=== PATIENT | female | born 1985 | race Caucasian/White ===

== ENCOUNTER 2019-01-06 21:35 | Inpatient (IN) | payer OTHER ==
[~2019-01-06] VITALS: Ht 172.7 cm; Wt 111.0 kg
--- NOTE | 2019-01-06 21:55 | NUR ---
BIB [facility] FROM [facility] WITH C/O BRAIN TUMOR, PT HAS LEFT JAW PAIN ON FRIDAY AND WENT TO ER TODAY NOW TRANSFERED HERE FOR HIGHER LEVEL OF CARE
[2019-01-06] MEDS ORDERED: ONDANSETRON 2MG/ML, 2ML ONE (22:27)
[2019-01-06] MEDS ORDERED: MORPHINE SULFATE 4 MG/ML, 1ML ONE (22:28)
[2019-01-06] MEDS ORDERED: MORPHINE SULFATE 4 MG/ML, 1ML IVPush PRN ×2 (22:30→23:00)
[2019-01-06] MEDS ORDERED: ONDANSETRON 2MG/ML, 2ML IVPush ONE (22:30)
--- NOTE | 2019-01-06 22:41 | NUR ---
medicated per md order pt ambulated to br , in nad at this time
[2019-01-06 22:56] LABS: BASOPHILS # (AUTO) 0.01 x10^3/uL (0-0.1); BASOPHILS % (AUTO) 0 % (0-1); EOSINOPHILS # (AUTO) 0.01 x10^3/uL (0-0.4); EOSINOPHILS % (AUTO) 0 % (1-7); LYMPHOCYTES # (AUTO) 0.72 x10^3/uL (1-3.4); LYMPHOCYTES % (AUTO) 9 % (22-44); MD NO; MEAN CORPUSCULAR HEMOGLOBIN 28.6 pg (27.0-34.8); MEAN CORPUSCULAR HGB CONC 33.4 g/dL (32.4-35.8); MEAN CORPUSCULAR VOLUME 85.8 fL (80-100); MEAN PLATELET VOLUME 9.3 fL (7.4-10.4); MONOCYTES # (AUTO) 0.08 x10^3/uL (0.2-0.8); MONOCYTES % (AUTO) 1 % (2-9); NEUTROPHILS # (AUTO) 7.07 x10^3/uL (1.8-6.8); NEUTROPHILS % (AUTO) 90 % (42-75); PLATELET COUNT 192 x10^3/uL (130-400); RED BLOOD COUNT 4.86 x10^6/uL (3.82-5.3); RED CELL DISTRIBUTION WIDTH 13.5 % (9.6-15.2)
[2019-01-06] MEDS ORDERED: ONDANSETRON 2MG/ML, 2ML IVPush PRN (23:00)
--- NOTE | 2019-01-06 23:01 | NUR ---
REPORT TO ANAIS PT TO ROOM WITH TECH
[2019-01-06 23:06] LABS: ANION GAP 8 mmol/L (5-15); CALCIUM 8.7 mg/dL (8.5-10.1); CHLORIDE 107 mmol/L (98-107); CREATININE 0.89 mg/dL (0.55-1.02)
[2019-01-06 23:07] LABS: ALANINE AMINOTRANSFERASE 25 U/L (12-78); ALBUMIN 4.1 g/dL (3.4-5.0)
[2019-01-06 23:11] LABS: ALKALINE PHOSPHATASE 80 U/L (45-117); BILIRUBIN,TOTAL 0.6 mg/dL (0.2-1.0); TOTAL PROTEIN 7.4 g/dL (6.4-8.2)
[2019-01-06] MEDS ORDERED: TEMAZEPAM 15 MG CAPSULE PO PRN (23:30)
[2019-01-06] MEDS ORDERED: CYCLOBENZAPRINE 10 MG TABLET PO PRN (23:30)
[2019-01-06] MEDS ORDERED: ENALAPRILAT 1.25 MG/ML, 2ML IVPush PRN (23:30)
[2019-01-06 23:42] VITALS: BP 127/68
[2019-01-07] MEDS: DEXAMETHASONE 4 MG/ML, 1ML IVPush SCH ×4 (00:30→19:45)
[2019-01-07] MEDS ORDERED: DEXAMETHASONE 4 MG/ML, 5ML ONE ×2 (00:42→05:49)
[2019-01-07 01:01] VITALS: BP 111/66
[2019-01-07 05:16] LABS: BASOPHILS # (AUTO) 0.01 x10^3/uL (0-0.1); BASOPHILS % (AUTO) 0 % (0-1); EOSINOPHILS % (AUTO) 0 % (1-7); LYMPHOCYTES # (AUTO) 0.56 x10^3/uL (1-3.4); LYMPHOCYTES % (AUTO) 11 % (22-44); MD NO; MEAN CORPUSCULAR HEMOGLOBIN 29.3 pg (27.0-34.8); MEAN CORPUSCULAR HGB CONC 33.7 g/dL (32.4-35.8); MEAN PLATELET VOLUME 9.6 fL (7.4-10.4); MONOCYTES # (AUTO) 0.04 x10^3/uL (0.2-0.8); MONOCYTES % (AUTO) 1 % (2-9); NEUTROPHILS # (AUTO) 4.65 x10^3/uL (1.8-6.8); NEUTROPHILS % (AUTO) 89 % (42-75); PLATELET COUNT 192 x10^3/uL (130-400); RED BLOOD COUNT 4.97 x10^6/uL (3.82-5.3); RED CELL DISTRIBUTION WIDTH 13.6 % (9.6-15.2)
[2019-01-07 05:22] LABS: ANION GAP 6 mmol/L (5-15); CALCIUM 8.6 mg/dL (8.5-10.1); CHLORIDE 108 mmol/L (98-107)
[2019-01-07 05:23] LABS: CREATININE 0.88 mg/dL (0.55-1.02)
[2019-01-07] MEDS: morphine SULFATE 10 MG/ML, 1ML IVPush PRN ×7 (05:25→22:43)
[2019-01-07] MEDS ORDERED: CARB200T4 PO (06:07)
[2019-01-07] MEDS ORDERED: CYCL-259 PO (06:10)
[2019-01-07] MEDS: LIDODERM 5% PATCH TD PRN (07:53)
[2019-01-07] MEDS: ACETAMINOPHEN 325 MG TABLET PO PRN (07:53)
[2019-01-07 08:30] VITALS: BP 116/72
[2019-01-07] MEDS: SODIUM CHLORIDE 0.9% 1,000 ML IV SCH (08:41)
[2019-01-07] MEDS: FAMOTIDINE 20 MG/2 ML IVPush SCH ×2 (09:51→21:08)
[2019-01-07] MEDS: GABAPENTIN 100 MG CAPSULE PO SCH ×3 (11:03→21:08)
[2019-01-07 12:27] VITALS: BP 113/69
[2019-01-07] MEDS ORDERED: GADOBUTROL 15 MMOL/15 ML VIAL ONE (16:10)
[2019-01-07 18:48] VITALS: BP 133/71
[2019-01-08 00:43] VITALS: BP 115/64
[2019-01-08] MEDS: DEXAMETHASONE 4 MG/ML, 1ML IVPush SCH ×4 (01:39→20:49)
[2019-01-08] MEDS: morphine SULFATE 10 MG/ML, 1ML IVPush PRN ×7 (01:43→22:09)
[2019-01-08] MEDS: SODIUM CHLORIDE 0.9% 1,000 ML IV SCH (04:16)
[2019-01-08 05:12] LABS: ANION GAP 5 mmol/L (5-15); CALCIUM 8.2 mg/dL (8.5-10.1); CHLORIDE 109 mmol/L (98-107); CREATININE 0.86 mg/dL (0.55-1.02)
[2019-01-08] MEDS: GABAPENTIN 100 MG CAPSULE PO SCH ×4 (05:19→20:50)
[2019-01-08 05:39] LABS: BASOPHILS # (AUTO) 0.02 x10^3/uL (0-0.1); BASOPHILS % (AUTO) 0 % (0-1); EOSINOPHILS % (AUTO) 0 % (1-7); LYMPHOCYTES # (AUTO) 0.65 x10^3/uL (1-3.4); LYMPHOCYTES % (AUTO) 9 % (22-44); MD NO; MEAN CORPUSCULAR HEMOGLOBIN 29.3 pg (27.0-34.8); MEAN CORPUSCULAR HGB CONC 33.7 g/dL (32.4-35.8); MEAN CORPUSCULAR VOLUME 86.8 fL (80-100); MONOCYTES # (AUTO) 0.13 x10^3/uL (0.2-0.8); MONOCYTES % (AUTO) 2 % (2-9); NEUTROPHILS # (AUTO) 6.79 x10^3/uL (1.8-6.8); NEUTROPHILS % (AUTO) 90 % (42-75); PLATELET COUNT 189 x10^3/uL (130-400); RED BLOOD COUNT 4.81 x10^6/uL (3.82-5.3); RED CELL DISTRIBUTION WIDTH 13.6 % (9.6-15.2)
[2019-01-08 07:22] VITALS: BP 126/74
[2019-01-08] MEDS: FAMOTIDINE 20 MG/2 ML IVPush SCH ×2 (08:10→20:49)
[2019-01-08] MEDS: LIDODERM 5% PATCH TD PRN (09:46)
[2019-01-08 11:31] LABS: INTERNATIONAL NORMALIZED RATIO 1.04 (0.93-1.1); PROTHROMBIN TIME 10.9 Seconds (9.6-11.5)
[2019-01-08 12:17] VITALS: BP 139/82
[2019-01-08 18:48] VITALS: BP 127/78
[2019-01-08] MEDS ORDERED: CARBAMAZEPINE 200 MG TABLET PO SCH (21:00)
[2019-01-09] MEDS: SODIUM CHLORIDE 0.9% 1,000 ML IV SCH (00:32)
[2019-01-09 01:13] VITALS: BP 115/71
[2019-01-09] MEDS: morphine SULFATE 10 MG/ML, 1ML IVPush PRN ×7 (01:20→21:38)
[2019-01-09] MEDS: DEXAMETHASONE 4 MG/ML, 1ML IVPush SCH ×4 (02:20→20:12)
[2019-01-09] MEDS: GABAPENTIN 100 MG CAPSULE PO SCH ×4 (05:13→21:37)
[2019-01-09] MEDS: LIDODERM 5% PATCH TD PRN (08:09)
[2019-01-09 08:16] VITALS: BP 117/75
[2019-01-09] MEDS: FAMOTIDINE 20 MG/2 ML IVPush SCH ×2 (09:33→21:38)
[2019-01-09] MEDS: CARBAMAZEPINE 200 MG TABLET PO SCH ×3 (09:33→21:37)
[2019-01-09] MEDS: BISACODYL 10 MG SUPP PR PRN (09:38)
[2019-01-09 12:04] VITALS: BP 126/80
[2019-01-09] MEDS: CYCLOBENZAPRINE 10 MG TABLET PO SCH ×2 (15:40→23:36)
[2019-01-09 19:13] VITALS: BP 126/76
[2019-01-10 01:01] VITALS: BP 127/76
[2019-01-10] MEDS: DEXAMETHASONE 4 MG/ML, 1ML IVPush SCH ×4 (01:33→20:55)
[2019-01-10] MEDS: morphine SULFATE 10 MG/ML, 1ML IVPush PRN ×7 (01:33→21:49)
[2019-01-10] MEDS: CARBAMAZEPINE 200 MG TABLET PO SCH ×4 (02:46→20:56)
[2019-01-10] MEDS: GABAPENTIN 100 MG CAPSULE PO SCH ×4 (05:45→20:56)
[2019-01-10 07:34] VITALS: BP 143/84
[2019-01-10] MEDS: FAMOTIDINE 20 MG/2 ML IVPush SCH (08:25)
[2019-01-10] MEDS: CYCLOBENZAPRINE 10 MG TABLET PO SCH ×3 (08:27→23:09)
[2019-01-10] MEDS: ONDANSETRON 2MG/ML, 2ML IVPush PRN (11:59)
[2019-01-10 13:57] VITALS: BP 132/80
[2019-01-10] MEDS: BISACODYL 10 MG SUPP PR PRN (18:41)
[2019-01-10 19:31] VITALS: BP 125/77
[2019-01-10] MEDS: FAMOTIDINE 20 MG TABLET PO SCH (20:56)
[2019-01-10] MEDS ORDERED: MORPHINE SULFATE 4 MG/ML, 1ML ONE (21:42)
[2019-01-11 01:29] VITALS: BP 127/77
[2019-01-11] MEDS: CARBAMAZEPINE 200 MG TABLET PO SCH ×4 (03:05→21:08)
[2019-01-11] MEDS: DEXAMETHASONE 4 MG/ML, 1ML IVPush SCH ×4 (03:05→21:08)
[2019-01-11] MEDS ORDERED: MORPHINE SULFATE 4 MG/ML, 1ML ONE ×2 (03:09→05:40)
[2019-01-11] MEDS: morphine SULFATE 10 MG/ML, 1ML IVPush PRN ×5 (03:11→19:33)
[2019-01-11 04:40] LABS: MICROSCOPIC NOT IND
[2019-01-11] MEDS: GABAPENTIN 100 MG CAPSULE PO SCH (05:38)
[2019-01-11 07:30] VITALS: BP 131/77
[2019-01-11] MEDS: FAMOTIDINE 20 MG TABLET PO SCH ×2 (08:01→21:08)
[2019-01-11] MEDS: CYCLOBENZAPRINE 10 MG TABLET PO SCH ×2 (08:01→16:22)
[2019-01-11] MEDS: ONDANSETRON 2MG/ML, 2ML IVPush PRN (08:05)
[2019-01-11] MEDS: GABAPENTIN 300 MG CAPSULE PO SCH ×3 (10:25→21:08)
[2019-01-11 12:35] VITALS: BP 123/79
[2019-01-11 18:53] VITALS: BP 128/85
[2019-01-12] MEDS: CYCLOBENZAPRINE 10 MG TABLET PO SCH ×3 (00:31→21:48)
[2019-01-12] MEDS: POTASSIUM CHLORIDE 20 MEQ in SODIUM CHLORIDE 0.9% 1,000 ML IV SCH ×2 (00:31→10:06)
[2019-01-12] MEDS ORDERED: MORPHINE SULFATE 4 MG/ML, 1ML ONE (01:52)
[2019-01-12] MEDS: morphine SULFATE 10 MG/ML, 1ML IVPush PRN ×2 (02:08→20:43)
[2019-01-12] MEDS: DEXAMETHASONE 4 MG/ML, 1ML IVPush SCH ×4 (02:09→21:48)
[2019-01-12 02:37] VITALS: BP 115/74
[2019-01-12] MEDS: CARBAMAZEPINE 200 MG TABLET PO SCH ×4 (03:00→21:49)
[2019-01-12 04:33] LABS: BASOPHILS # (AUTO) 0.03 x10^3/uL (0-0.1); BASOPHILS % (AUTO) 0 % (0-1); EOSINOPHILS % (AUTO) 0 % (1-7); LYMPHOCYTES # (AUTO) 1.11 x10^3/uL (1-3.4); LYMPHOCYTES % (AUTO) 13 % (22-44); MD NO; MEAN CORPUSCULAR HEMOGLOBIN 29.2 pg (27.0-34.8); MEAN CORPUSCULAR VOLUME 85.9 fL (80-100); MEAN PLATELET VOLUME 9.6 fL (7.4-10.4); MONOCYTES # (AUTO) 0.29 x10^3/uL (0.2-0.8); MONOCYTES % (AUTO) 3 % (2-9); NEUTROPHILS # (AUTO) 7.43 x10^3/uL (1.8-6.8); NEUTROPHILS % (AUTO) 84 % (42-75); PLATELET COUNT 203 x10^3/uL (130-400); RED BLOOD COUNT 5.13 x10^6/uL (3.82-5.3); RED CELL DISTRIBUTION WIDTH 13.6 % (9.6-15.2)
[2019-01-12 04:41] LABS: INTERNATIONAL NORMALIZED RATIO 0.98 (0.93-1.1); PROTHROMBIN TIME 10.3 Seconds (9.6-11.5)
[2019-01-12 04:50] LABS: CHLORIDE 105 mmol/L (98-107)
[2019-01-12 04:57] LABS: ALANINE AMINOTRANSFERASE 43 U/L (12-78); ALBUMIN 3.6 g/dL (3.4-5.0); ALKALINE PHOSPHATASE 74 U/L (45-117); ANION GAP 5 mmol/L (5-15); BILIRUBIN,TOTAL 0.4 mg/dL (0.2-1.0); CALCIUM 8.4 mg/dL (8.5-10.1); CREATININE 0.84 mg/dL (0.55-1.02)
[2019-01-12] MEDS: GABAPENTIN 300 MG CAPSULE PO SCH ×4 (06:00→21:49)
[2019-01-12] MEDS ORDERED: BACITRACIN 50,000 UNIT ONE (06:23)
[2019-01-12] MEDS ORDERED: BUPIVACAINE/PF-EPI 0.5% 1:200K ONE (06:23)
[2019-01-12] MEDS ORDERED: METHYLENE BLUE 10 MG/ML 10ML ONE (06:23)
[2019-01-12] MEDS ORDERED: CEFUROXIME 1.5 GM ONE ×3 (06:23→14:58)
[2019-01-12] MEDS ORDERED: THROMBIN 5,000 UNIT VIAL TP ONE (06:23)
[2019-01-12] MEDS ORDERED: THROMBIN 20,000 UNIT VIAL TP ONE (06:35)
[2019-01-12] MEDS ORDERED: SUFentanil 50 MCG/ML, 2ML ONE ×2 (06:41→10:42)
[2019-01-12] MEDS ORDERED: FENTANYL PF 250 MCG/5ML ONE (06:51)
[2019-01-12] MEDS ORDERED: MIDAZOLAM 1 MG/ML, 2ML ONE ×2 (06:51→15:14)
[2019-01-12] MEDS ORDERED: DEXAMETHASONE 4 MG/ML, 5ML ONE (07:02)
[2019-01-12] MEDS ORDERED: hydrALAzine 20 MG/ML, 1ML ONE (07:02)
[2019-01-12] MEDS ORDERED: SUCCINYLCHOLINE 20 MG/ML, 10ML ONE (07:02)
[2019-01-12] MEDS ORDERED: FAMOTIDINE 20 MG/2 ML ONE (07:07)
[2019-01-12] MEDS ORDERED: MANNITOL PMX 20% 500 ML ONE (07:07)
[2019-01-12] MEDS ORDERED: FUROSEMIDE 20 MG/2 ML ONE (08:05)
[2019-01-12] MEDS ORDERED: PROPOFOL 200 ML ONE (09:20)
[2019-01-12] MEDS ORDERED: LABETALOL 5MG/ML, 20ML IV PRN ×2 (09:30→21:00)
[2019-01-12] MEDS ORDERED: PROMETHAZINE 25 MG/ML, 1ML IV PRN (09:30)
[2019-01-12] MEDS ORDERED: ALBUTEROL SULFATE 2.5 MG/3 ML NPPB PRN (09:30)
[2019-01-12] MEDS ORDERED: ACETAMINOPHEN 325 MG TABLET PO PRN (09:30)
[2019-01-12] MEDS ORDERED: hydrALAzine 20 MG/ML, 1ML IV PRN ×2 (09:30→21:00)
[2019-01-12] MEDS ORDERED: DIAZEPAM 5 MG/ML, 2ML IVPush PRN (09:30)
[2019-01-12] MEDS ORDERED: OXYcodone 5 MG/5 ML ORAL.SOL UDC PO PRN (09:30)
[2019-01-12] MEDS ORDERED: MEPERIDINE/PF 25MG/0.5ML IVPush PRN (09:30)
[2019-01-12] MEDS ORDERED: PROPOFOL 100 ML ONE (12:44)
[2019-01-12] MEDS ORDERED: SUFentanil 50 MCG/ML, 1ML ONE ×2 (14:25→14:26)
[2019-01-12] MEDS ORDERED: POTASSIUM CHLORIDE 40 MEQ in SODIUM CHLORIDE 0.9% 500 ML IV ONE (15:13)
[2019-01-12] MEDS ORDERED: FENTANYL PF 100 MCG/2ML ONE ×2 (18:22→19:00)
[2019-01-12] MEDS ORDERED: CEFUROXIME 1.5 GM in SODIUM CHLORIDE 0.9% 50 ML IV ONE (18:37)
[2019-01-12] MEDS ORDERED: HYDROmorphone 1 MG/ML, 1ML ONE (19:00)
[2019-01-12] MEDS: HYDROmorphone 2 MG/ML, 1ML IVPush PRN ×2 (19:01→19:39)
[2019-01-12] MEDS: FENTANYL PF 100 MCG/2ML IV PRN ×2 (19:12→20:00)
[2019-01-12] MEDS ORDERED: morphine SULFATE 10 MG/ML, 1ML IV PRN (21:00)
[2019-01-12] MEDS: CEFUROXIME 1.5 GM in SODIUM CHLORIDE 0.9% 50 ML IVPB SCH (21:00)
[2019-01-12] MEDS ORDERED: HYDROmorphone PCA 30 MG/30 ML IV PRN (21:00)
[2019-01-12] MEDS: FAMOTIDINE 20 MG TABLET PO SCH ×2 (21:00→21:48)
[2019-01-12] MEDS: OXYcodone/APAP 5/325MG TABLET PO PRN (21:50)
[2019-01-12] MEDS: ONDANSETRON 2MG/ML, 2ML IV PRN (22:17)
[2019-01-13] MEDS: POTASSIUM CHLORIDE 20 MEQ in SODIUM CHLORIDE 0.9% 1,000 ML IV SCH ×2 (00:17→08:00)
[2019-01-13] MEDS ORDERED: LABETALOL 5 MG/ML SYRINGE IV PRN (00:30)
[2019-01-13] MEDS: CARBAMAZEPINE MC SCH ×2 (00:56→08:00)
[2019-01-13] MEDS: DEXAMETHASONE 4 MG/ML, 1ML IVPush SCH ×4 (02:17→19:44)
[2019-01-13] MEDS: CEFUROXIME 1.5 GM in SODIUM CHLORIDE 0.9% 50 ML IVPB SCH ×3 (02:17→17:18)
[2019-01-13] MEDS: CARBAMAZEPINE 200 MG TABLET PO SCH ×4 (02:21→21:36)
[2019-01-13] MEDS: OXYcodone/APAP 5/325MG TABLET PO PRN ×2 (04:17→19:45)
[2019-01-13 05:02] LABS: BASOPHILS # (AUTO) 0.02 x10^3/uL (0-0.1); BASOPHILS % (AUTO) 0 % (0-1); EOSINOPHILS % (AUTO) 0 % (1-7); LYMPHOCYTES # (AUTO) 0.54 x10^3/uL (1-3.4); LYMPHOCYTES % (AUTO) 5 % (22-44); MD NO; MEAN CORPUSCULAR HEMOGLOBIN 29.2 pg (27.0-34.8); MEAN CORPUSCULAR HGB CONC 33.9 g/dL (32.4-35.8); MEAN CORPUSCULAR VOLUME 86.1 fL (80-100); MEAN PLATELET VOLUME 9.6 fL (7.4-10.4); MONOCYTES # (AUTO) 0.47 x10^3/uL (0.2-0.8); MONOCYTES % (AUTO) 4 % (2-9); NEUTROPHILS % (AUTO) 91 % (42-75); PLATELET COUNT 190 x10^3/uL (130-400); RED BLOOD COUNT 4.42 x10^6/uL (3.82-5.3); RED CELL DISTRIBUTION WIDTH 14.2 % (9.6-15.2)
[2019-01-13 05:08] LABS: ANION GAP 7 mmol/L (5-15); CALCIUM 7.5 mg/dL (8.5-10.1); CHLORIDE 102 mmol/L (98-107)
[2019-01-13 05:11] LABS: CREATININE 0.74 mg/dL (0.55-1.02)
[2019-01-13] MEDS: CYCLOBENZAPRINE 10 MG TABLET PO SCH ×3 (06:51→21:34)
[2019-01-13] MEDS: ARTIFICIAL TEARS 15 DROP/ML BOTTLE EACHEYE SCH ×8 (08:00→21:36)
[2019-01-13] MEDS: FAMOTIDINE 20 MG TABLET PO SCH ×2 (09:33→21:33)
[2019-01-13] MEDS: GABAPENTIN 300 MG CAPSULE PO SCH ×4 (09:33→21:33)
[2019-01-13] MEDS: ONDANSETRON 2MG/ML, 2ML IV PRN ×2 (13:06→19:44)
--- NOTE | 2019-01-13 13:17 | NUR ---
HANDBELL CHOIR DIRECTOR RECOMMEND: BETY/MARIO -Check for pocketing -Straws OK -Meds as tolerated -Up for all meals [place] sheet posted Addendum: 01/13/19 at [address] Amended: Links added.
[2019-01-14] MEDS: ARTIFICIAL TEARS 15 DROP/ML BOTTLE EACHEYE SCH ×12 (00:09→22:35)
[2019-01-14] MEDS: OXYcodone/APAP 5/325MG TABLET PO PRN ×2 (00:12→06:20)
[2019-01-14] MEDS: DEXAMETHASONE 4 MG/ML, 1ML IVPush SCH ×4 (02:19→20:06)
[2019-01-14] MEDS: CARBAMAZEPINE 200 MG TABLET PO SCH ×4 (03:35→20:06)
[2019-01-14 05:09] LABS: BASOPHILS % (AUTO) 0 % (0-1); EOSINOPHILS # (AUTO) 0.01 x10^3/uL (0-0.4); EOSINOPHILS % (AUTO) 0 % (1-7); LYMPHOCYTES % (AUTO) 7 % (22-44); MD NO; MEAN CORPUSCULAR HEMOGLOBIN 28.9 pg (27.0-34.8); MEAN CORPUSCULAR HGB CONC 33.2 g/dL (32.4-35.8); MEAN CORPUSCULAR VOLUME 86.9 fL (80-100); MEAN PLATELET VOLUME 9.8 fL (7.4-10.4); MONOCYTES # (AUTO) 0.61 x10^3/uL (0.2-0.8); MONOCYTES % (AUTO) 6 % (2-9); NEUTROPHILS # (AUTO) 8.21 x10^3/uL (1.8-6.8); NEUTROPHILS % (AUTO) 86 % (42-75); PLATELET COUNT 185 x10^3/uL (130-400); RED BLOOD COUNT 4.41 x10^6/uL (3.82-5.3); RED CELL DISTRIBUTION WIDTH 13.9 % (9.6-15.2)
[2019-01-14 05:17] LABS: ANION GAP 5 mmol/L (5-15); CALCIUM 8.1 mg/dL (8.5-10.1); CHLORIDE 104 mmol/L (98-107)
[2019-01-14 05:18] LABS: CREATININE 0.67 mg/dL (0.55-1.02)
[2019-01-14] MEDS: GABAPENTIN 300 MG CAPSULE PO SCH ×4 (06:20→20:06)
[2019-01-14] MEDS: CYCLOBENZAPRINE 10 MG TABLET PO SCH ×3 (06:20→22:35)
[2019-01-14] MEDS: FAMOTIDINE 20 MG TABLET PO SCH ×2 (08:57→20:06)
[2019-01-14] MEDS ORDERED: LACTULOSE 20 GM/30 ML UDC PO PRN (09:00)
[2019-01-14 13:00] VITALS: BP 124/72
[2019-01-14] MEDS: BISACODYL 10 MG SUPP PR PRN (18:05)
[2019-01-14 20:30] VITALS: BP 132/70
[2019-01-15] MEDS: ARTIFICIAL TEARS 15 DROP/ML BOTTLE EACHEYE SCH ×13 (00:25→23:46)
[2019-01-15 02:00] VITALS: BP 123/67
[2019-01-15] MEDS: CARBAMAZEPINE 200 MG TABLET PO SCH ×4 (02:38→21:08)
[2019-01-15] MEDS: DEXAMETHASONE 4 MG/ML, 1ML IVPush SCH ×4 (02:38→19:32)
[2019-01-15 04:42] LABS: BASOPHILS # (AUTO) 0.02 x10^3/uL (0-0.1); BASOPHILS % (AUTO) 0 % (0-1); EOSINOPHILS # (AUTO) 0.01 x10^3/uL (0-0.4); EOSINOPHILS % (AUTO) 0 % (1-7); LYMPHOCYTES # (AUTO) 0.75 x10^3/uL (1-3.4); LYMPHOCYTES % (AUTO) 10 % (22-44); MD NO; MEAN CORPUSCULAR HEMOGLOBIN 29.2 pg (27.0-34.8); MEAN CORPUSCULAR HGB CONC 33.7 g/dL (32.4-35.8); MEAN CORPUSCULAR VOLUME 86.7 fL (80-100); MEAN PLATELET VOLUME 9.5 fL (7.4-10.4); MONOCYTES # (AUTO) 0.47 x10^3/uL (0.2-0.8); MONOCYTES % (AUTO) 6 % (2-9); NEUTROPHILS # (AUTO) 6.26 x10^3/uL (1.8-6.8); NEUTROPHILS % (AUTO) 83 % (42-75); PLATELET COUNT 159 x10^3/uL (130-400); RED BLOOD COUNT 4.08 x10^6/uL (3.82-5.3); RED CELL DISTRIBUTION WIDTH 13.2 % (9.6-15.2)
[2019-01-15 04:48] LABS: ANION GAP 4 mmol/L (5-15); CALCIUM 7.9 mg/dL (8.5-10.1); CHLORIDE 101 mmol/L (98-107); CREATININE 0.51 mg/dL (0.55-1.02)
[2019-01-15] MEDS: GABAPENTIN 300 MG CAPSULE PO SCH ×4 (05:52→21:08)
[2019-01-15] MEDS: CYCLOBENZAPRINE 10 MG TABLET PO SCH ×3 (05:52→21:57)
[2019-01-15] MEDS: OXYcodone/APAP 5/325MG TABLET PO PRN ×2 (08:06→17:33)
[2019-01-15] MEDS: FAMOTIDINE 20 MG TABLET PO SCH ×2 (08:10→21:08)
[2019-01-15] MEDS ORDERED: GADOBUTROL 15 MMOL/15 ML VIAL ONE (13:07)
[2019-01-15 13:35] VITALS: BP 115/74
[2019-01-15] MEDS ORDERED: VASOPRESSIN 100 UNIT in SODIUM CHLORIDE 0.9% 495 ML IV PRN (19:30)
[2019-01-15] MEDS ORDERED: PHENYLEPHRINE 20 MG in SODIUM CHLORIDE 0.9% 248 ML IV PRN (19:30)
[2019-01-15 20:46] VITALS: BP 116/70
[2019-01-16 00:14] VITALS: BP 99/65
[2019-01-16] MEDS: ARTIFICIAL TEARS 15 DROP/ML BOTTLE EACHEYE SCH ×12 (02:05→23:52)
[2019-01-16] MEDS: DEXAMETHASONE 4 MG/ML, 1ML IVPush SCH ×4 (02:05→20:09)
[2019-01-16] MEDS: CARBAMAZEPINE 200 MG TABLET PO SCH ×4 (02:47→21:29)
[2019-01-16 04:32] VITALS: BP 121/66
[2019-01-16 05:38] LABS: BASOPHILS # (AUTO) 0.02 x10^3/uL (0-0.1); BASOPHILS % (AUTO) 0 % (0-1); EOSINOPHILS # (AUTO) 0.01 x10^3/uL (0-0.4); EOSINOPHILS % (AUTO) 0 % (1-7); LYMPHOCYTES # (AUTO) 0.85 x10^3/uL (1-3.4); LYMPHOCYTES % (AUTO) 14 % (22-44); MD NO; MEAN CORPUSCULAR HEMOGLOBIN 29.3 pg (27.0-34.8); MEAN CORPUSCULAR HGB CONC 34.4 g/dL (32.4-35.8); MEAN CORPUSCULAR VOLUME 85.1 fL (80-100); MEAN PLATELET VOLUME 9.4 fL (7.4-10.4); MONOCYTES # (AUTO) 0.33 x10^3/uL (0.2-0.8); MONOCYTES % (AUTO) 5 % (2-9); NEUTROPHILS # (AUTO) 4.82 x10^3/uL (1.8-6.8); NEUTROPHILS % (AUTO) 80 % (42-75); PLATELET COUNT 152 x10^3/uL (130-400); RED BLOOD COUNT 4.01 x10^6/uL (3.82-5.3)
[2019-01-16 05:44] LABS: ANION GAP 5 mmol/L (5-15); CHLORIDE 101 mmol/L (98-107)
[2019-01-16 05:48] LABS: CREATININE 0.56 mg/dL (0.55-1.02)
[2019-01-16] MEDS: GABAPENTIN 300 MG CAPSULE PO SCH ×4 (05:55→21:29)
[2019-01-16] MEDS: CYCLOBENZAPRINE 10 MG TABLET PO SCH ×3 (05:56→22:16)
[2019-01-16] MEDS: FAMOTIDINE 20 MG TABLET PO SCH ×2 (07:59→21:30)
[2019-01-16 08:30] VITALS: BP 128/71
[2019-01-16] MEDS: ACETAMINOPHEN 325 MG TABLET PO PRN (10:47)
[2019-01-16 14:00] VITALS: BP 141/84
[2019-01-16 16:07] VITALS: BP 130/77
[2019-01-16] MEDS: OXYcodone/APAP 5/325MG TABLET PO PRN (20:16)
[2019-01-16 20:24] VITALS: BP 109/72
[2019-01-17 00:30] VITALS: BP 104/70
[2019-01-17] MEDS: ARTIFICIAL TEARS 15 DROP/ML BOTTLE EACHEYE SCH ×11 (01:49→23:07)
[2019-01-17] MEDS: DEXAMETHASONE 4 MG/ML, 1ML IVPush SCH ×4 (01:49→20:08)
[2019-01-17] MEDS: CARBAMAZEPINE 200 MG TABLET PO SCH ×4 (03:00→20:15)
[2019-01-17 04:04] VITALS: BP 97/63
[2019-01-17 05:50] LABS: BASOPHILS # (AUTO) 0.02 x10^3/uL (0-0.1); BASOPHILS % (AUTO) 0 % (0-1); EOSINOPHILS % (AUTO) 0 % (1-7); LYMPHOCYTES # (AUTO) 0.95 x10^3/uL (1-3.4); LYMPHOCYTES % (AUTO) 14 % (22-44); MD NO; MEAN CORPUSCULAR HEMOGLOBIN 29.5 pg (27.0-34.8); MEAN CORPUSCULAR HGB CONC 34.2 g/dL (32.4-35.8); MEAN CORPUSCULAR VOLUME 86.2 fL (80-100); MEAN PLATELET VOLUME 9.6 fL (7.4-10.4); MONOCYTES % (AUTO) 5 % (2-9); NEUTROPHILS % (AUTO) 81 % (42-75); PLATELET COUNT 179 x10^3/uL (130-400); RED BLOOD COUNT 4.13 x10^6/uL (3.82-5.3); RED CELL DISTRIBUTION WIDTH 13.2 % (9.6-15.2)
[2019-01-17 05:59] LABS: ANION GAP 5 mmol/L (5-15); CALCIUM 8.3 mg/dL (8.5-10.1); CHLORIDE 102 mmol/L (98-107)
[2019-01-17] MEDS: CYCLOBENZAPRINE 10 MG TABLET PO SCH ×3 (06:03→23:06)
[2019-01-17] MEDS: GABAPENTIN 300 MG CAPSULE PO SCH ×4 (06:03→20:09)
[2019-01-17 07:16] VITALS: BP 104/64
[2019-01-17] MEDS: FAMOTIDINE 20 MG TABLET PO SCH ×2 (09:03→20:08)
[2019-01-17] MEDS: OXYcodone/APAP 5/325MG TABLET PO PRN ×2 (10:46→21:39)
[2019-01-17 12:15] VITALS: BP 132/64
[2019-01-17 16:49] VITALS: BP 143/82
[2019-01-17 20:48] VITALS: BP 124/71
[2019-01-18 00:30] VITALS: BP 107/67
[2019-01-18] MEDS: CARBAMAZEPINE 200 MG TABLET PO SCH ×3 (02:09→16:03)
[2019-01-18] MEDS: DEXAMETHASONE 4 MG/ML, 1ML IVPush SCH ×3 (02:09→15:00)
[2019-01-18] MEDS: ARTIFICIAL TEARS 15 DROP/ML BOTTLE EACHEYE SCH ×7 (02:10→16:04)
[2019-01-18] MEDS: OXYcodone/APAP 5/325MG TABLET PO PRN (02:19)
[2019-01-18 04:31] VITALS: BP 111/57
[2019-01-18 05:00] LABS: BASOPHILS # (AUTO) 0.02 x10^3/uL (0-0.1); BASOPHILS % (AUTO) 0 % (0-1); EOSINOPHILS # (AUTO) 0.01 x10^3/uL (0-0.4); EOSINOPHILS % (AUTO) 0 % (1-7); LYMPHOCYTES # (AUTO) 1.31 x10^3/uL (1-3.4); LYMPHOCYTES % (AUTO) 16 % (22-44); MD NO; MEAN CORPUSCULAR HEMOGLOBIN 28.8 pg (27.0-34.8); MEAN CORPUSCULAR HGB CONC 33.6 g/dL (32.4-35.8); MEAN CORPUSCULAR VOLUME 85.7 fL (80-100); MONOCYTES # (AUTO) 0.45 x10^3/uL (0.2-0.8); MONOCYTES % (AUTO) 5 % (2-9); NEUTROPHILS # (AUTO) 6.65 x10^3/uL (1.8-6.8); NEUTROPHILS % (AUTO) 79 % (42-75); PLATELET COUNT 212 x10^3/uL (130-400); RED BLOOD COUNT 4.27 x10^6/uL (3.82-5.3); RED CELL DISTRIBUTION WIDTH 13.2 % (9.6-15.2)
[2019-01-18 05:08] LABS: ANION GAP 5 mmol/L (5-15); CALCIUM 8.4 mg/dL (8.5-10.1); CHLORIDE 103 mmol/L (98-107); CREATININE 0.74 mg/dL (0.55-1.02)
[2019-01-18] MEDS: GABAPENTIN 300 MG CAPSULE PO SCH ×3 (05:54→16:02)
[2019-01-18] MEDS: CYCLOBENZAPRINE 10 MG TABLET PO SCH ×2 (06:42→16:03)
[2019-01-18 08:25] VITALS: BP 140/77
[2019-01-18] MEDS: FAMOTIDINE 20 MG TABLET PO SCH (08:30)
[2019-01-18] MEDS: ACETAMINOPHEN 325 MG TABLET PO PRN ×2 (08:31→16:03)
[2019-01-18] MEDS ORDERED: OXYC1TAB7 PO (11:48)
[2019-01-18] MEDS ORDERED: METH4TAB2 PO (11:48)
[2019-01-18] MEDS ORDERED: GABA300C10 PO (11:48)
[2019-01-18 13:01] VITALS: BP 128/77
[2019-01-18 16:40] VITALS: BP 128/82
== END 2019-01-18 18:00 | DRG 25 ==
LOC: ED 22:09 → EDIP 22:33 → 4NOR 23:35 → 3NW 01-07 07:32 → CCU 01-12 11:28 → ICU 01-14 11:11 → CCU 01-15 06:18 → 4NOR 01-15 10:50
PROVIDERS: ADMIT Internal Medicine; ATTEND Internal Medicine
PROC: 4A103BD Monitoring of Intracranial Pressure, Percutaneous Approach (ICD-10-PCS; 2019-01-12)
PROC: 03HY32Z Insertion of Monitoring Device into Upper Artery, Percutaneous Approach (ICD-10-PCS; 2019-01-12)
PROC: 00B10ZZ Excision of Cerebral Meninges, Open Approach (ICD-10-PCS; principal; 2019-01-12 07:00)
DX: D32.0 Benign neoplasm of cerebral meninges (principal); G93.5 Compression of brain; R22.0 Localized swelling, mass and lump, head; G50.0 Trigeminal neuralgia; E66.01 Morbid (severe) obesity due to excess calories; Z68.37 Body mass index [BMI] 37.0-37.9, adult; G51.0 Bell's palsy; H61.22 Impacted cerumen, left ear; H71.90 Unspecified cholesteatoma, unspecified ear; I10 Essential (primary) hypertension; R13.10 Dysphagia, unspecified; Z82.49 Family history of ischemic heart disease and other diseases of the circulatory system
CPT/HCPCS: 36415; 99285; J3490; 70450; 70553; 71045; 80047; 80048; 80053; 81003; 82330; 82803; 82947; 84132; 84295; 84703; 85014; 85025; 85610; 87081; 88307; 88331; 93005; 95938; 95941; 96374; 96375; A9585; C1713; G0378; J0697; J1100; J1170; J2250; J2405; J2704; J3010; J3480; C1768; C1781; J0330; J0360; J1940; J2270; J7030; J7050; Q9968